=== PATIENT | female | born 1970 ===

== ENCOUNTER 2018-05-24 00:03 | Emergency (ER) | payer SELFPAY ==
[2018-05-24 02:02] VITALS: BP 132/61; RESP 18; TEMP 98.4; O2SAT 99
--- NOTE | 2018-05-24 02:10 | ED PDOC ---
HPI: General Adult Time Seen by Provider: 05/24/18 00:30 Chief Complaint (Nursing): Upper Extremity Problem/Injury History Per: Patient Additional Complaint(s): Pt. states for the past 2 days she's had neck pain radiating down the L arm and also feels numbness to all the fingers on both hands. Reports pain is worsened with movement of the neck and L shoulder. Of note, pt. has not taken any meds to help relieve symptoms. Denies fever, headache, chest pain, SOB, palpitations , sore throat, trauma, rash. Past Medical History Reviewed: Historical Data, Nursing Documentation, Vital Signs Vital Signs: Last Vital Signs Temp 98.4 F 05/24/18 02:01 Pulse 71 05/24/18 02:01 Resp 18 05/24/18 02:01 BP 132/61 05/24/18 02:01 Pulse Ox 99 05/24/18 02:01 - Medical History PMH: Hiatal Hernia - Surgical History Surgical History: Hernia Repair, (2) - Family History Family History: States: No Known Family Hx - Home Medications Home Medications: Ambulatory Orders Medication Instructions Recorded Acetaminophen/Codeine Phosph 1 tab PO TID #10 tab 07/29/15 [Acetaminophen and Codeine Phosphate #3 300 mg] Tramadol HCl [Ultram] 50 mg PO Q6 #15 tab 07/29/15 Cyclobenzaprine [Cyclobenzaprine 10 mg PO Q8 PRN #10 tab 05/24/18 HCl] Naproxen [Naprosyn] 500 mg PO BID PRN #10 tab 05/24/18 - Allergies Allergies/Adverse Reactions: Allergies Allergy/AdvReac Type Severity Reaction Status Date / Time Penicillins Allergy SHORTNESS Verified 05/24/18 00:20 OF BREATH Review of Systems ROS Statement: Except As Marked, All Systems Reviewed And Found Negative Musculoskeletal: Positive for: Neck Pain Physical Exam - Physical Exam Appears: Positive for: Well, Non-toxic, No Acute Distress Head Exam: Positive for: ATRAUMATIC, NORMAL INSPECTION, NORMOCEPHALIC Skin: Positive for: Normal Color, Warm. Negative for: Rash Eye Exam: Positive for: EOMI, Normal appearance, PERRL ENT: Positive for: Normal ENT Inspection. Negative for: Pharyngeal Erythema, Tonsillar Exudate, Tonsillar Swelling Neck: Positive for: Supple, Pain On Movement Of Neck Cardiovascular/Chest: Positive for: Regular Rate, Rhythm Respiratory: Positive for: Normal Breath Sounds. Negative for: Respiratory Distress Pulses-Radial (L): 2+ Pulses-Radial (R): 2+ Back: Positive for: Normal Inspection, Muscle Spasm (L sided trapezius muscle spasm). Negative for: L CVA Tenderness, R CVA Tenderness, Vertebral Tenderness (including cervical spine) Extremity: Positive for: Normal ROM (FROM actively of L shoulder), Capillary Refill (< 2 seconds of b/l upper extremities), Other (L shoulder without tenderness, swelling, or deformity; equal thread laster strenght b/l; no skin changes to b/l upper extremities) Neurologic/Psych: Positive for: Alert, Oriented (x3). Negative for: Aphasia, Facial Droop - ECG ECG: Positive for: Interpreted By Me ECG Rhythm: Positive for: Sinus Rhythm. Negative for: ST/T Changes Rate: 68 O2 Sat by Pulse Oximetry: 99 - Radiology X-Ray: Interpreted by Me (C-spine x-ray) X-Ray Interpretation: Other (DJD; no fx) - Progress ED Course And Treament: C-spine x-ray, toradol 30mg IM, flexeril 10mg PO ordered. On re-evaluation, pt. reports pain has improved. Advised to f/u with PMD for possible MRI. Pt. understands and agrees with plan. Disposition - Clinical Impression Clinical Impression: Cervical radiculopathy - Patient ED Disposition Is Patient to be Admitted: No - Disposition Referrals: Ronnie Skinner MD [Primary Care Provider] - Disposition: Routine/Home Disposition Time: 01:45 Condition: STABLE Additional Instructions: ULICES RICHARDS, thank you for letting us take care of you today. Your provider was Davion Nolan MD and you were treated for LEFT SIDE OF NECK PAIN RADIATING DOWN LEFT ARM. The emergency medical care you received today was directed at your acute symptoms. If you were prescribed any medication , please fill it and take as directed. It may take several days for your symptoms to resolve. Return to the Emergency Department if your symptoms worsen , do not improve, or if you have any other problems. Please contact your doctor or call one of the physicians/clinics you have been referred to that are listed on the Patient Visit Information form that is included in your discharge packet. Bring any paperwork you were given at discharge with you along with any medications you are taking to your follow up visit. Our treatment cannot replace ongoing medical care by a primary care provider outside of the emergency department. Thank you for allowing the [facility] team to be part of your care today. If you had an X-Ray or CT scan: A Radiologist will review the ED reading if any change in treatment is needed we will contact you. If you had a blood, urine, or wound culture: It will take several days for the results, if any change in treatment is needed we will contact you. If you had an STI test: It will take 48 hours for the results. Please call after 1 week if you have not heard back. Prescriptions: Cyclobenzaprine [Cyclobenzaprine HCl] 10 mg PO Q8 PRN #10 tab PRN Reason: Muscle Spasm Naproxen [Naprosyn] 500 mg PO BID PRN #10 tab PRN Reason: Pain Instructions: Radiculopathy (DC) Forms: [employer] (Turkish) Print Language: DUTCH
[2018-05-24 03:49] VITALS: PULSE 68
--- NOTE | 2018-05-24 08:22 | CARD ---
APPROVED REPORT Date of service: 05/24/2018 <Conclusion> Normal sinus rhythm Normal ECG
--- NOTE | 2018-05-24 11:38 | RAD ---
Date of service: 05/24/2018 PROCEDURE: Cervical Spine Radiographs. HISTORY: Pain. COMPARISON: None. FINDINGS: Note that the study is somewhat limited due to partial obscuration of the odontoid by overlying occiput an incisor teeth in the open-mouth projection BONES: Alignment maintained. No fracture so far as can be seen given limitation of the exam. . Dens Intact. DISC SPACES: Mild degenerative spondylosis most notably affecting C5-C6 level with disc space narrowing, endplate eburnation as well as anterior and posterior osteophyte formation. Mild moderate multilevel facet and uncovertebral arthropathy SOFT TISSUES: Normal. No prevertebral soft tissue swelling. OTHER FINDINGS: None. IMPRESSION: Slightly limited study demonstrating no acute fractures. Mild moderate degenerative spondylosis as described
== END 2018-05-24 02:01 | disposition home or self-care (01) ==
LOC: H.ER 00:03
DX: M54.12 Radiculopathy, cervical region (principal); Z88.0 Allergy status to penicillin
CPT/HCPCS: 72040; 93005; 96372; 99284; J1885